=== PATIENT | female | born 1995 | race Caucasian/White ===

== ENCOUNTER → 2017-01-31 | Outpatient (CLI) | payer BC | LOC: BMCIMAGING 14:09 | PROVIDERS: ATTEND Emergency Medicine | DX: R22.1 Localized swelling, mass and lump, neck (principal); R05 Cough ==

== ENCOUNTER → 2017-04-18 | Outpatient (CLI) | payer BC | LOC: BMCIMAGING 17:09 | PROVIDERS: ATTEND Internal Medicine | DX: R05 Cough (principal) ==

== ENCOUNTER → 2017-04-24 | Outpatient (CLI) | payer BC ==
[~2017-04-24] MED LIST: IOPAMIDOL (ISOVUE-300) 100 ML BTL ONE
== END ==
LOC: CIMAGING 14:11
PROVIDERS: ATTEND Internal Medicine
DX: R59.1 Generalized enlarged lymph nodes (principal); J35.1 Hypertrophy of tonsils
CPT/HCPCS: 70491-PO; Q9967

== ENCOUNTER 2017-05-29 11:49 | Emergency (ER) | payer BC ==
[2017-05-29 12:11] VITALS: BP 104/64; PULSE 84; RESP 18; TEMP 97.9; O2SAT 99
== END 2017-05-29 12:58 | disposition left against medical advice (07) ==
DX: Z53.21 Procedure and treatment not carried out due to patient leaving prior to being seen by health care provider (principal)

== ENCOUNTER 2018-01-21 12:30 | Emergency (ER) | payer BC ==
[2018-01-21] MEDS ORDERED: NS 1,000 ML IV ONE ×2 (13:14)
[2018-01-21] MEDS ORDERED: KETOROLAC 30 MG/1 ML SDV IVP ONE (13:14)
[2018-01-21] MEDS ORDERED: ONDANSETRON 4 MG/2 ML VIAL IVP ONE (13:14)
[2018-01-21] MEDS ORDERED: DEXAMETHASONE 10 MG/ML VIAL IVP ONE (13:14)
--- NOTE | 2018-01-21 13:18 | EDPHY ---
H & P Time Seen by Provider: 01/21/18 13:00 HPI/ROS: CHIEF COMPLAINT: Sore throat and neck pain HISTORY OF PRESENT ILLNESS: Patient started having symptoms 2 days ago. Started with a subjective fever for the first 24 hr followed by feeling of a "swollen throat" and was seen at urgent care this morning with a negative strep test. She presents today to see me with continued sore throat and some neck muscle pain and stiffness. Associated with nausea and some pain in her teeth and ears. Does not have weakness or numbness in arms or legs. Denies headache or vomiting. No recent foreign travel. Symptoms moderate. Feels dehydrated. Associated with decreased oral intake. REVIEW OF SYSTEMS: Eye: no change in vision ENT: HPI Cardiac: no chest pain or syncope Pulmonary: no cough or SOB Abdomen: no vomiting, or abdominal pain Musculoskeletal: HPI Skin: no rash Neuro: no headache Constitutional: HPI : no urinary symptoms A comprehensive 10 point review of systems is otherwise negative aside from elements mentioned in the history of present illness. PAST MEDICAL HISTORY: Anxiety, surgery for left humerus fracture as a child Social history: No IV drugs or foreign country travel recently General Appearance: Alert and conversant, cooperative. Eyes: No scleral icterus. No proptosis. ENT, Mouth: Dry mucous membranes. Normal tympanic membranes. Does not have trismus, has some pharyngeal erythema without exudate, uvula is midline. No gum swelling. Respiratory: Normal respiratory effort, breath sounds equal, lungs are clear to auscultation. No stridor or drooling. No facial swelling or tenderness. Cardiovascular: Regular rate and rhythm. No murmur. Gastrointestinal: Abdomen is soft and non tender. Neurological: Alert, face symmetric, normal motor and sensory in extremities. Skin: Warm and dry, no rashes. No petechiae or purpura. Musculoskeletal: Patient has ability to flex and extend her neck, no meningeal signs. Psychiatric: Tearful, not agitated. Emergency Department course/MDM: Clinically unlikely to have meningitis. Will treat with IV fluids for dehydration, Zofran 4 mg IV. Dexamethasone 10 mg discussed and consented. Her last menstrual period was January 10 she denies possibility of . Toradol [address] IV contrast of the neck to exclude retropharyngeal or other deep space infection with neck pain preceded by pharyngitis, discussed and consented. 1435: CT per Dr. Stephenson negative for deep space abscess or airway compromise. Results discussed with the patient at this time. Plan to discharge with pharyngitis and symptomatic treatment. Smoking Status: Never smoked Constitutional: Initial Vital Signs Temperature (C) 36.9 C 01/21/18 12:31 Heart Rate 109 H 01/21/18 12:31 Respiratory Rate 16 01/21/18 12:31 Blood Pressure 88/64 L 01/21/18 12:31 O2 Sat (%) 100 01/21/18 12:31 O2 Delivery Mode Room Air Allergies/Adverse Reactions: No Known Allergies Allergy (Unverified 01/21/18 12:35) Home Medications: Medication Instructions Recorded NK [No Known Home Meds] 05/29/17 Medical Decision Making - Diagnostics Imaging: Discussed imaging studies w/ call specialist Radiologist - Data Points Laboratory Results: Laboratory Results 01/21/18 13:00 01/21/18 13:00 01/21/18 01/21/18 01/21/18 13:00 13:00 13:00 WBC 8.94 10^3/uL 10^3/uL (3.80-9.50) RBC 5.25 10^6/uL 10^6/uL (4.18-5.33) Hgb 13.9 g/dL g/dL (12.6-16.3) Hct 42.3 % % (38.0-47.0) MCV 80.6 fL L fL (81.5-99.8) MCH 26.5 pg L pg (27.9-34.1) MCHC 32.9 g/dL g/dL (32.4-36.7) RDW 13.2 % % (11.5-15.2) Plt Count 221 10^3/uL 10^3/uL (150-400) MPV 10.1 fL fL (8.7-11.7) Neut % (Auto) 72.9 % % (39.3-74.2) Lymph % (Auto) 15.9 % % (15.0-45.0) Grainger % (Auto) 10.5 % % (4.5-13.0) Eos % (Auto) 0.1 % L % (0.6-7.6) Baso % (Auto) 0.3 % % (0.3-1.7) Nucleat RBC Rel Count 0.0 % % (0.0-0.2) Absolute Neuts (auto) 6.51 10^3/uL H 10^3/uL (1.70-6.50) Absolute Lymphs (auto) 1.42 10^3/uL 10^3/uL (1.00-3.00) Absolute Monos (auto) 0.94 10^3/uL H 10^3/uL (0.30-0.80) Absolute Eos (auto) 0.01 10^3/uL L 10^3/uL (0.03-0.40) Absolute Basos (auto) 0.03 10^3/uL 10^3/uL (0.02-0.10) Absolute Nucleated RBC 0.00 10^3/uL 10^3/uL (0-0.01) Immature Gran % 0.3 % % (0.0-1.1) Immature Gran # 0.03 10^3/uL 10^3/uL (0.00-0.10) Sodium 139 mEq/L mEq/L (135-145) Potassium 4.1 mEq/L mEq/L (3.3-5.0) Chloride 101 mEq/L mEq/L (97-110) Carbon Dioxide 22 mEq/l mEq/l (22-31) Anion Gap 16 mEq/L mEq/L (8-16) BUN 14 mg/dL mg/dL (7-23) Creatinine 0.7 mg/dL mg/dL (0.6-1.0) Estimated GFR > 60 Glucose 92 mg/dL mg/dL (70-100) Calcium 9.8 mg/dL mg/dL (8.5-10.4) Beta HCG, Qual NEGATIVE Medications Given: Discontinued Medications Dexamethasone (Decadron Injection) 10 mg IVP EDNOW ONE Stop: 01/21/18 13:15 Last Admin: 01/21/18 13:39 Dose: 10 mg Sodium Chloride (Ns) 1,000 mls @ 0 mls/hr IV ONCE ONE; Wide Open PRN Reason: Protocol Stop: 01/21/18 13:15 Last Admin: 01/21/18 13:40 Dose: 1,000 mls Sodium Chloride (Ns) 1,000 mls @ 0 mls/hr IV EDNOW ONE; Wide Open PRN Reason: Protocol Stop: 01/21/18 13:15 Last Admin: 01/21/18 12:35 Dose: 1,000 mls Ketorolac Tromethamine (Toradol) 15 mg IVP EDNOW ONE Stop: 01/21/18 13:15 Last Admin: 01/21/18 13:39 Dose: 15 mg Ondansetron HCl (Zofran) 4 mg IVP EDNOW ONE Stop: 01/21/18 13:15 Last Admin: 01/21/18 13:40 Dose: 4 mg Departure - Departure Disposition: Home, Routine, Self-Care Clinical Impression: Pharyngitis Qualifiers: Pharyngitis/tonsillitis etiology: unspecified etiology Qualified Code(s): J02.9 - Acute pharyngitis, unspecified Condition: Good Instructions: Pharyngitis (ED) Referrals: Jp Sherman MD [Medical Doctor] - 1 day, if not improved (ENT referral if not improving)
[2018-01-21 13:29] LABS: PLATELET COUNT 221 10^3/uL (150-400)
[2018-01-21] MEDS ORDERED: IOPAMIDOL (ISOVUE-300) 100 ML BTL ONE (13:53)
[2018-01-21 14:54] VITALS: BP 122/78
== END 2018-01-21 14:54 | disposition home or self-care (01) ==
DX: J02.9 Acute pharyngitis, unspecified (principal); E86.9 Volume depletion, unspecified
CPT/HCPCS: 96374; J1100; J1885; J2405; Q9967